=== PATIENT | female | born 1975 | race Caucasian/White ===

== ENCOUNTER 2020-10-10 10:27 | Outpatient (REF) | payer OTHER, SELFPAY ==
[2020-10-10 12:17] LABS: Influenza A PCR NEGATIVE (Negative); Influenza B PCR NEGATIVE (Negative); Resp Syncy Virus RNA Qual PCR NEGATIVE (Negative); SARS COV2 PCR INHOUSE NEGATIVE (Negative)
== END 2020-10-10 10:28 | disposition home or self-care (01) ==
LOC: HO.LAB 10:27
PROVIDERS: Visit Provider Nurse Practitioner Family
DX: R05 Cough (principal); Z20.828 Contact with and (suspected) exposure to other viral communicable diseases
CPT/HCPCS: 0241U

== ENCOUNTER 2020-10-10 10:35 | Outpatient (REF) | payer OTHER, SELFPAY ==
--- NOTE | 2020-10-10 10:40 | XR_ITS ---
EXAMINATION: XR CHEST CLINICAL INFORMATION: Cough. COMPARISON: None TECHNIQUE: 2 views of the chest were obtained. FINDINGS: No significant abnormality is noted involving the heart, lungs, mediastinum, bony thorax or soft tissues. XR/XR chest 2V IMPRESSION: No acute cardiopulmonary process.
== END 2020-10-10 10:36 | disposition home or self-care (01) ==
LOC: HO.HMGCX 10:35
PROVIDERS: PCP Internal Medicine; Visit Provider Nurse Practitioner Family
DX: R05 Cough (principal)
CPT/HCPCS: 71046

== ENCOUNTER 2021-01-23 07:32 | Outpatient (REF) | payer OTHER, SELFPAY ==
[2021-01-23 11:04] LABS: MANUAL DIFF FLAG NO
[2021-01-23 11:26] LABS: Basophils Absolute Auto 0.1 X10*3/uL (0.0-0.2); Basophils Percent Auto 1.3 % (0-2); Eosinophils Absolute Auto 0.2 X10*3/uL (0.0-0.4); Eosinophils Percent Auto 4.8 % (0-4); Hematocrit 31.4 % (37-47); Hemoglobin 9.6 g/dl (12.0-16.0); Imm Gran Abs Auto 0.01 X10*3/uL (0.00-0.03); Imm Gran Pct Auto 0.2 % (0.0-0.4); Lymphocytes Absolute Auto 1.3 X10*3/uL (1.2-4.9); Lymphocytes Percent Auto 27.5 % (20-40); Mean Corpuscular HGB Conc 30.6 g/dl (31.0-35.0); Mean Corpuscular Hemoglobin 24.4 pg (27.0-33.0); Mean Corpuscular Volume 79.7 fL (80-98); Mean Platelet Volume 11.7 fL (9.4-12.3); Monocytes Absolute Auto 0.4 X10*3/uL (0.1-1.2); Monocytes Percent Auto 8.7 % (2-11); Neutrophils Absolute Auto 2.7 X10*3/uL (2.0-8.3); Neutrophils Percent Auto 57.5 % (45-73); Platelet Count 286 X10*3/uL (160-400); Red Blood Count 3.94 X10*6/uL (4.20-5.50); Red Cell Distribution Width 16.8 % (11.0-16.0); White Blood Count 4.6 X10*3/uL (4.8-10.8)
[2021-01-23 12:19] LABS: Alanine Aminotransferase 6 U/L (0-31); Albumin Level 4.1 g/dL (3.5-5.0); Alkaline Phosphatase 46 U/L (39-117); Anion Gap 12 (12-20); Aspartate Amino Transferase 10 U/L (5-31); Bilirubin Total 0.2 mg/dL (0.0-1.0); Blood Urea Nitrogen 16 mg/dL (9-16); Calcium 8.9 mg/dL (8.4-10.2); Carbon Dioxide 25 mmol/L (22-29); Chloride 107 mmol/L (96-108); Cholesterol 181 mg/dL; Estimated Glomerular Filt Rate > 60; Glucose Fasting 94 mg/dL (60-99); HDL Cholesterol 52 mg/dL; LDL Cholesterol Calculated 115 mg/dl; Potassium 4.3 mmol/L (3.3-5.1); Sodium 140 mmol/L (135-145); Total Protein 7.2 g/dL (6.5-8.0); Triglycerides 73 mg/dL
== END 2021-01-23 07:33 | disposition home or self-care (01) ==
LOC: HO.HMGCLDS 07:32
PROVIDERS: PCP Internal Medicine; Visit Provider Internal Medicine
DX: Z00.00 Encounter for general adult medical examination without abnormal findings (principal); D22.9 Melanocytic nevi, unspecified; Z28.3 Underimmunization status
CPT/HCPCS: 36415; 80053; 80061; 85025

== ENCOUNTER 2021-02-28 10:43 | Outpatient (REF) | payer OTHER, SELFPAY ==
--- NOTE | ~2021-02-28 | US_ITS ---
EXAMINATION: US DIAGNOSTIC ULTRASOUND BREAST, LEFT CLINICAL INFORMATION: Bilateral palpable abnormalities. COMPARISON: September 05, 2014, December 04, 2017,. TECHNIQUE: Ultrasound of the breast is performed with real-time brewer scale imaging and color Doppler. FINDINGS: Targeted right breast ultrasound demonstrated multiple simple cysts largest being at the 11:00 position 6 cm from nipple measuring approximately 2.1 x 1.0 x 2.1 cm in size. At the 3:00 position approximately 1 cm from nipple there is a 6 x 5 x 6 mm simple appearing cyst. No abnormal solid mass or region of abnormal distal sound shadowing is appreciated. Targeted left breast ultrasound demonstrates multiple simple cysts. Within the retroareolar region there is a prominent duct with filling defect measuring approximately 6 x 3 mm in size which may possibly represent a papilloma or debris. No internal vascularity was identified. There was some adjacent blood flow was could possibly represent pedicle. Since patient is having nipple discharge I recommend ultrasound-guided biopsy of this structure. Results are discussed with the patient at time of visit. Report was called to referring provider's office and given to Katerin. US/US breast LT limited IMPRESSION: Bilateral simple appearing cyst. Question retroareolar papilloma left breast. Biopsy recommended. ASSESSMENT: BI-RADS 4: Suspicious RECOMMENDATION: Ultrasound-guided core biopsy left breast
--- NOTE | ~2021-02-28 | US_ITS ---
EXAMINATION: US DIAGNOSTIC ULTRASOUND BREAST, RIGHT CLINICAL INFORMATION: Probable abnormality. COMPARISON: December 04, 2017 and September 05, 2014. TECHNIQUE: Ultrasound of the breast is performed with real-time brewer scale imaging and color Doppler. FINDINGS: Targeted right breast ultrasound demonstrated multiple simple cysts largest being at the 11:00 position 6 cm from nipple measuring approximately 2.1 x 1.0 x 2.1 cm in size. At the 3:00 position approximately 1 cm from nipple there is a 6 x 5 x 6 mm simple appearing cyst. No abnormal solid mass or region of abnormal distal sound shadowing is appreciated. Targeted left breast ultrasound demonstrates multiple simple cysts. Within the retroareolar region there is a prominent duct with filling defect measuring approximately 6 x 3 mm in size which may possibly represent a papilloma or debris. No internal vascularity was identified. There was some adjacent blood flow was could possibly represent pedicle. Since patient is having nipple discharge I recommend ultrasound-guided biopsy of this structure. Results are discussed with the patient at time of visit. Report was called to referring provider's office and given to Katerin. US/US breast RT limited IMPRESSION: Bilateral simple appearing cyst. Question retroareolar papilloma left breast. Biopsy recommended. ASSESSMENT: BI-RADS 4: Suspicious RECOMMENDATION: Ultrasound-guided core biopsy left breast
--- NOTE | ~2021-02-28 | MM_ITS ---
EXAMINATION: MM DIAGNOSTIC DIGITAL BREAST TOMOSYNTHESIS, BILATERAL US BREAST TARGETED, BILATERAL CLINICAL INFORMATION: Palpable abnormality right breast felt by doctor. Palpable abnormality anterior left breast felt by patient. Patient does state that she has occasional left breast discharge. The lifetime risk of breast cancer based on the Tyrer-Cuzick Model is 11.7%. COMPARISON: Mammography: 12/04/2017 and studies dating back to 06/23/2013 TECHNIQUE: Digital breast tomosynthesis is performed in both the craniocaudal and mediolateral oblique views along with computer-aided detection (CAD). Synthesized 2-D images are generated from the tomosynthesis. FINDINGS: The breasts are extremely dense, which lowers the sensitivity of mammography (ACR BI-RADS breast composition Category d). Within the right breast, there are a few circumscribed densities present, the largest of which lies within the upper outer aspect measuring 2.1 x 1.8 cm in size. No suspicious grouping of microcalcifications identified. No region of architectural distortion is seen. Views of the left breast did not demonstrate any new abnormal mass or suspicious grouping of microcalcifications. There was question of some calcifications in the retroareolar region but which appear to be artifactual in nature. Targeted right breast ultrasound demonstrated multiple simple cysts, the largest being at the 11 o'clock position 6 cm from nipple, measuring approximately 2.1 x 1.0 x 2.1 cm in size. At the 3 o'clock position, approximately 1 cm from nipple, there is a 6 x 5 x 6 mm simple-appearing cyst. No abnormal solid mass or region of abnormal distal sound shadowing is appreciated. Targeted left breast ultrasound demonstrates multiple simple cysts. Within the retroareolar region, there is a prominent duct with filling defect measuring approximately 6 x 3 mm in size which may possibly represent papilloma or debris. No internal vascularity was identified. There was some adjacent blood flow which could possibly represent pedicle. Since patient is having nipple discharge, I recommend ultrasound-guided biopsy of this structure. Results are discussed with the patient at time of visit. Report was called to referring provider's office and given to Katerin. MM/MM tomosynthesis diagnostic BI IMPRESSION: Bilateral simple-appearing cysts. Question retroareolar papilloma left breast. Biopsy recommended. ASSESSMENT: BI-RADS 4: Suspicious RECOMMENDATION: Ultrasound-guided core biopsy left breast.
== END 2021-02-28 10:44 | disposition home or self-care (01) ==
LOC: HO.MAMMO 10:43
PROVIDERS: Visit Provider Hospitalist
DX: N63.12 Unspecified lump in the right breast, upper inner quadrant (principal); N63.25 Unspecified lump in the left breast, overlapping quadrants
CPT/HCPCS: 76642; 77062; 77066

== ENCOUNTER 2021-03-21 09:18 | Outpatient (REF) | payer OTHER, SELFPAY ==
--- NOTE | ~2021-03-21 | MM_ITS ---
EXAMINATION: DIGITAL POST-PROCEDURE MAMMOGRAPHY: Breast density: The tissue is extremely dense, which lowers the sensitivity of mammography. BI-RADS version 5, category D. There are no new mammographic findings demonstrated. The postprocedure 2-view direct digital mammogram reveals satisfactory positioning of the biopsy clip. The patient tolerated the procedure well and, after assuring adequate hemostasis, was discharged in good condition after reviewing postbiopsy breast care instructions. Final pathology results are pending. MM/MM diagnostic mammo unilat LT IMPRESSION: 1. No immediate complication from ultrasound-guided percutaneous biopsy left breast. 2. Ultrasound was used to localize and guide marker clip placement. 3. The 2-view direct digital postprocedure mammogram reveals satisfactory positioning of the biopsy clip. 4. Final pathology results are pending. A separate report with final recommendations will be issued once these results are made available.
--- NOTE | ~2021-03-21 | US_ITS ---
PROCEDURE: US GUIDED BREAST BIOPSY, LEFT CLINICAL INFORMATION: Intraductal density COMPARISON: February 28, 2021 PROCEDURAL DETAILS: The details of the procedure, as well as the risks, benefits, and alternatives to the procedure were explained to the patient in detail and all of her questions were answered, after which written informed consent was obtained. Site and side were confirmed. Prior to the procedure, sonography revealed distended retroareolar duct with filling defect without vascularity.. A time-out was performed, the lesion intended for biopsy was targeted, and the skin of the left breast was then prepped and draped in the usual sterile fashion. Using sonographic guidance, sterile technique, and 1% lidocaine without epinephrine for local anesthesia, multiple automated core biopsies were obtained through the targeted area with a 14G spring loaded Achieve core biopsy device. There was real-time confirmation of appropriate needle passage. Sampling was documented. At the completion of tissue sampling, a single coil-shaped metallic clip was deposited at the biopsy site. There was no evidence of immediate complication. SPECIMEN: An appropriate sample was obtained. DIGITAL POST-PROCEDURE MAMMOGRAPHY: Breast density: The tissue is extremely dense, which lowers the sensitivity of mammography. BI-RADS version 5, category D. There are no new mammographic findings demonstrated. The postprocedure 2-view direct digital mammogram reveals satisfactory positioning of the biopsy clip. The patient tolerated the procedure well and, after assuring adequate hemostasis, was discharged in good condition after reviewing postbiopsy breast care instructions. Final pathology results are pending. US/US breast ndl core biopsy LT IMPRESSION: 1. No immediate complication from ultrasound-guided percutaneous biopsy left breast. 2. Ultrasound was used to localize and guide marker clip placement. 3. The 2-view direct digital postprocedure mammogram reveals satisfactory positioning of the biopsy clip. 4. Final pathology results are pending. A separate report with final recommendations will be issued once these results are made available.
== END 2021-03-21 09:19 | disposition home or self-care (01) ==
LOC: HO.MAMMO 09:18
PROVIDERS: Visit Provider Surgery
DX: R92.2 Inconclusive mammogram (principal)
CPT/HCPCS: 19083; 77065; 88305; 99202

== ENCOUNTER → 2021-03-27 13:09 | Outpatient (BNVA) | payer OTHER, SELFPAY | PROVIDERS: PCP Internal Medicine; Referring Provider Internal Medicine; Visit Provider Surgery | DX: D24.2 Benign neoplasm of left breast (principal) | CPT/HCPCS: 99212 ==

== ENCOUNTER 2021-04-16 06:57 | Day surgery (SDC) | payer OTHER, SELFPAY ==
[2021-04-08 15:01] VITALS: BMI 22.2
--- NOTE | 2021-04-12 09:30 | P.CONAN_ITS ---
Documented by User: Gladis Preston 04/12/21 09:35 HPI - Anesthesia Eval Consult details Narrative: 45yo F for Left Breast Biopsy Needle Localization, Lumpectomy PMFSH Active Problems Active Problems: All Active Problems (Updated 04/08/21 @ 14:59 by Rosie Puckett) Cough (Acute) Pneumonia (Acute) Annual physical exam (Acute) Change in mole (Acute) Immunizations incomplete (Acute) Breast screening (Acute) Iron deficiency anemia (Acute) Masses of both breasts (Acute) Intraductal papilloma (Acute) Abnormal mammogram of left breast (Acute) Left breast mass (Acute) Past Medical History Medical History (Updated 04/08/21 @ 14:59 by Rosie Puckett) Abnormal mammogram of left breast Intraductal papilloma Iron deficiency anemia Left breast mass Family History Family History Maternal Grandmother Breast cancer Surgical History Surgical History (Updated 04/08/21 @ 14:49 by Rosie Puckett) H/O section History of appendectomy History of tonsillectomy Social History Social History Are you a primary career development consultant to a significant other at home: No Do you presently have visiting nurse or other home services: No Alcohol intake: current Alcohol intake frequency: a few times a week Patient Tobacco Use Status: Never used Tobacco Use of substances other than those prescribed or required for medical reasons: No Have you been hit, kicked, punched, or otherwise hurt by someone within the past year? If so, by whom?: No Are you DNR?: No Advance Directives: No Advance Directives Information Provided: No Advance Directives on File: No Recently lost weight without trying: No Eating poorly because of decreased appetite: No Nutrition Risks: No Nutritional Risk Patient : No Meds Allergies Allergy/AdvReac Type Severity Reaction Status Date / Time Environmental Allergy Unknown unknown Uncoded 02/18/21 09:41 Home Medications Medication Instructions Recorded Confirmed Last Taken Type triamcinolone acetonide 0.1 % PO 02/18/21 02/18/21 Unknown History dental paste Exam Exam Date and Time: April 12, 2021 0930 Height,Weight and Vital Signs: Height 5 ft 6 in Weight 62.596 kg Pertinent Lab Results Pertinent Lab Results: Laboratory Tests 01/23/21 01/23/21 07:37 07:37 WBC 4.6 L Hgb 9.6 L Hct 31.4 L Plt Count 286 Sodium 140 Potassium 4.3 Chloride 107 Carbon Dioxide 25 BUN 16 Creatinine 0.74 Assessment and Plan Assessment Anesthesia Assessment: Chart Reviewed Documented by User: Issa Lutz MD 04/16/21 08:53 PMFSH Past Medical History Medical History (Updated 04/08/21 @ 14:59 by Rosie Puckett) Abnormal mammogram of left breast Intraductal papilloma Iron deficiency anemia Left breast mass Family History Family History Maternal Grandmother Breast cancer Family history of problems with anesthesia: No Surgical History Surgical History (Updated 04/08/21 @ 14:49 by Rosie Puckett) H/O section History of appendectomy History of tonsillectomy History of Problems with Anesthesia: No Social History Social History Are you a primary career development consultant to a significant other at home: No Do you presently have visiting nurse or other home services: No Alcohol intake: current Alcohol intake frequency: a few times a week Patient Tobacco Use Status: Never used Tobacco Use of substances other than those prescribed or required for medical reasons: No Have you been hit, kicked, punched, or otherwise hurt by someone within the past year? If so, by whom?: No Are you DNR?: No Advance Directives: No Advance Directives Information Provided: No Advance Directives on File: No Recently lost weight without trying: No Eating poorly because of decreased appetite: No Nutrition Risks: No Nutritional Risk Patient : No Meds Allergies Allergy/AdvReac Type Severity Reaction Status Date / Time Environmental Allergy Unknown unknown Uncoded 02/18/21 09:41 Home Medications Medication Instructions Recorded Confirmed Last Taken Type triamcinolone acetonide 0.1 % PO 02/18/21 02/18/21 Unknown History dental paste Exam Airway Mallampati Class: I TM Dist: >3cm Neck ROM: Full Loose/Missing/Broken Teeth: No Assessment and Plan Assessment Anesthesia Assessment: Anesthesia Plan Discussed and Chart Reviewed Final Anesthetic Review NPO: Yes ASA Class: II Final Preanesthetic Review: No Changes in Pt Med Stat, Meds/Allgs Chart Reviewed, Consent Obtained/Reviewed and Anes Risks/Benef Reviewed Patient Risk: Low Procedure Risk: Low Anesthetic Plan Anesthetic Plan: GA and Agree w/ Assess. and Plan Disposition: Standard PACU
[2021-04-16] VITALS (9 sets, daily range): BP systolic 102–133; BP diastolic 63–79; PULSE 72–90; RESP 16; TEMP 36.3–36.6; O2SAT 97–100
--- NOTE | ~2021-04-16 | MM_ITS ---
EXAMINATION: MM MAMMOGRAM GUIDED NEEDLE LOCALIZATION BREAST, LEFT MM NEEDLE LOCALIZATION SPECIMEN FROM THE LEFT BREAST CLINICAL INFORMATION: Left breast intraductal papilloma with small fragment of atypical epithelium. COMPARISON: Mammography 02/28/2021, 6 07/31/2021, targeted ultrasound 02/28/2021, ultrasound-guided core biopsy left breast 03/21/2021. TECHNIQUE NEEDLE LOC: Proper informed consent is obtained from the patient after discussion of the procedure, potential risks and complications, and alternatives including declining the procedure today. Patient was given an opportunity for questions. The patient appeared to understand. The patient consented to the procedure and signed the consent form. GUIDANCE: Digital mammography. APPROACH: Lateral Medial. TARGET: Retroareolar biopsy clip marker left breast. ANESTHESIA: lidocaine 1%: 5 mL. LOCALIZATION MARKER: [place] [employer]. 5 cm length. The skin is prepped and local anesthesia administered. The needle is positioned and position assessed with mammography. The wire is hooked into position. [place] needle protector placed. The patient tolerated the procedure well and had no immediate complication. Procedure results discussed with Dr. Bauman prior to surgery. TECHNIQUE SPECIMEN RADIOGRAPH: Imaging of the excised specimen is performed using digital mammography in 1 view. FINDINGS SPECIMEN RADIOGRAPH: The specimen shows the needle and hookwire are delivered intact. The biopsy clip marker is within the specimen, or adjacent to the localization wire. There are some punctate round calcifications 2 cm from the clip. Results were called to Dr. Francisco Bauman in the operating room at the time of imaging. MM/MM needle loc LT IMPRESSION: 1. Status post left breast needle localization with wire hooked into position. 2. Post operative specimen radiograph obtained.
[2021-04-16 07:21] LABS: UPreg QC Valid YES; Urine Pregnancy NEGATIVE (NEGATIVE)
--- NOTE | 2021-04-16 08:13 | PC.NURSE ---
off unit via stretcher for needle localization
--- NOTE | 2021-04-16 08:28 | MHC.SHP ---
Pre-Procedural Eval Section A Date of Service: 04/16/21 Section B Chief Complaint: Intraductal papilloma Allergies: Allergies Allergy/AdvReac Type Severity Reaction Status Date / Time Environmental Allergy Unknown unknown Uncoded 02/18/21 09:41 Plan I have reviewed the history and physical and performed a pertinent physical examination on my patient. No changes have occurred unless specified.
--- NOTE | 2021-04-16 08:31 | PM.OP ---
Brief Operative Note Date of Service: 04/16/21 Pre-op diagnosis: intraductal papilloma left breast Post-op diagnosis: same Procedure: lumpectomy left breast with needle localization Surgeon: Francisco Bauman MD Anesthesia: GLMA Was an Tacking Stitch Remover used for this Procedure?: No Estimated blood loss (mL): 30 Pathology: other ( lumpectomy specimen) Condition: stable Disposition: PACU
--- NOTE | 2021-04-16 08:32 | W.PM.OPN ---
Operative Note Operative Note Date of Service: 04/16/21 Narrative: preop diagnosis: Intraductal papilloma left breast Postop diagnosis same Procedure: Lumpectomy, left breast with needle localization Surgeon: Francisco Bauman MD Computer Operations Analyst: none The patient is a 45-year-old female who had undergone ultrasound biopsy for of the left breast because of a abnormal mammogram. The biopsy report showed an intraductal papilloma. It was recommended to her to undergo lumpectomy to rule out sssociated higher grade lesions. She understood the technique of the procedure. She was aware of the risks, benefits, and alternatives. She underwent needle localization the radiology suite. I discussed and reviewed the needle localization films with the radiologist. She was brought to the operating room placed supine the table under general anesthesia via laryngeal mask airway. The localizing needle was seen to enter from lateral to medially. A surgical time-out was done. The left breast was prepped and draped in the usual sterile fashion. Patient received cefazolin 2 g IV preoperatively. I marked my planned line of incision and infiltrated this with lidocaine 1%. I made the incision using blade 15. tangential to the needle and this was carried down through the full-thickness of the skin and part of the subcutaneous layer with electrocautery. I then proceeded to retract the skin surrounding the incision and used dissection with a curved Boo scissors to divide through the breast tissue surrounding the needle. We continued to dissect circumferentially around the localizing needle, periodically checking to make sure that we were oriented properly and that we were including adequate margins of breast tissue around the needle itself. We had to cauterize periodically in view of some bleeding from the divided breast tissue. The continue to do it sec around the needle to the breast tissue and do separate this lumpectomy specimen posteriorly. Eventually was I able to deliver this lumpectomy specimen with a needle and we sent this for immediate re-ray and gross exam. I then proceeded to examine the biopsy cavity. I had to cauterize some oozing areas. I copies irrigated. I applied a gauze within the cavity and observed for a few minutes. I removed the gauze examined for hemostasis. Once hemostasis was ensured a proceeded to infiltrate the area around the biopsy site with Marcaine 0.5% for postop analgesia. Then reapposed the breast tissue with Dexon 3-0 interrupted sutures. Skin closure was achieved with Dexon 4-0 subcuticular running stitch. Steri-Strips and dressings were applied At the end of the procedure, I received a call from the radiologist stating that the clip was within good position of the lumpectomy specimen and that the localizing needle was in place and intact as well. The procedures are completed The patient tolerated procedure well. There were no complication noted. Initial fine counts of sponges and instruments were correct. Estimated blood loss about 30 cc The patient was then extubated without difficulty and transferred to the recovery room with stable vital signs.
[2021-04-16] MEDS: Lactated Ringers 1,000 ML 100 ML IVCONT (08:49)
[2021-04-16] MEDS: fentaNYL citrate/PF 100 MCG/2 ML VIAL 50 MCG IVPUSH (10:20)
[2021-04-16] MEDS: ondansetron HCL 4 MG/2 ML VIAL IVPUSH (10:25)
== END 2021-04-16 12:14 | disposition home or self-care (01) ==
PROVIDERS: Nurse Practitioner; PCP Internal Medicine; Visit Provider Surgery
PROC: (CPT 19301; principal; 2021-04-16 09:00)
PROC: (CPT 19301; 2021-04-16 09:00)
DX: D24.2 Benign neoplasm of left breast (principal); D50.9 Iron deficiency anemia, unspecified; Z79.899 Other long term (current) drug therapy
CPT/HCPCS: 19301; 19281; 81025; 88307; 88329; A4648; J0690; J1100; J1885; J2405; J3010

== ENCOUNTER → 2021-04-24 10:26 | Outpatient (BNVA) | payer OTHER, SELFPAY | PROVIDERS: PCP Internal Medicine; Referring Provider Internal Medicine; Visit Provider Surgery | DX: D36.9 Benign neoplasm, unspecified site (principal) | CPT/HCPCS: 99212 ==

== ENCOUNTER 2022-04-01 13:27 | Outpatient (REF) | payer OTHER, SELFPAY ==
--- NOTE | ~2022-04-01 | MM_ITS ---
EXAMINATION: MM DIAGNOSTIC DIGITAL BREAST TOMOSYNTHESIS, BILATERAL US DIAGNOSTIC ULTRASOUND BREAST, RIGHT CLINICAL INFORMATION: Due for yearly. New palpable area noted by patient anterior 11:30 o'clock right breast for approximately 4 days. History intraductal papilloma contralateral left breast with focal atypia. Lesion completely excised 04/16/2021. The lifetime risk of breast cancer based on the Tyrer-Cuzick Model is 12%. COMPARISON: Mammography: 04/16/2021, 03/21/2021, 02/28/2021, 12/04/2017; ultrasound right breast 02/28/2021. TECHNIQUE: Digital breast tomosynthesis is performed in both the craniocaudal and mediolateral oblique views along with computer-aided detection (CAD). Synthesized 2D images are generated from the tomosynthesis. Additional exaggerated left CC view is provided. Ultrasound right breast is targeted to the area of clinical concern upper breast 10:00 through 2:00 position using grayscale imaging and color Doppler without and with harmonics. Patient is able to point to area of concern at time of imaging. FINDINGS: Mammography: The breasts are heterogeneously dense, which may obscure small masses (ACR BI-RADS breast composition Category c). There are interval postsurgical changes left breast with mild reduced breast size and scarring. Neither breast shows abnormal calcifications. The bilateral axilla are unremarkable. There are increased fibrocystic changes anterior upper inner right breast in the area of palpable concern. No architectural abnormality. Ultrasound: Ultrasound demonstrates scattered simple cysts right breast, anechoic with circumscribed margins and increased through-transmission of sound. No associated solid component or septation or color flow. Dominant cyst is retroareolar 11:00 position increased in size, currently measuring 2.8 x 1.1 x 2.5 cm compared with prior measurements 2.1 x 1.0 x 2.1 cm. The next largest cyst is near the palpable concern anterior 12:00 position and measures 1.5 x 1.2 cm, not previously described on ultrasound. There is no solid mass or architectural abnormality or focal duct ectasia. No skin thickening or edema tracking in soft tissue planes. Management: Results are discussed with the patient at time of visit. The palpable concern corresponds to a simple cysts. There are amenable to ultrasound-guided fine-needle aspiration if symptomatic or increasing. MM/MM tomosynthesis diagnostic BI IMPRESSION: -No mammographic evidence of malignancy. -Post surgical changes left breast consistent with prior excision. -Fibrocystic changes right breast corresponding to area of palpable concern, largest cyst 2.8 cm. ASSESSMENT: BI-RADS 2: Benign RECOMMENDATION: 1. Patient should be managed based on the clinical impression. If the benign simple cysts right breast are symptomatic or continue to increase in size, they would be amenable to therapeutic ultrasound-guided aspiration. 2. Otherwise, routine annual screening mammography. This patient's information was entered into a reminder system with a target due date for their next mammogram.
== END 2022-04-01 13:28 | disposition home or self-care (01) ==
LOC: HO.MAMMO 13:27
PROVIDERS: PCP Internal Medicine; Visit Provider Internal Medicine
DX: N63.15 Unspecified lump in the right breast, overlapping quadrants (principal)
CPT/HCPCS: 76642; 77062; 77066

== ENCOUNTER 2024-01-21 08:02 | Outpatient (AMB) | payer OTHER, SELFPAY ==
[2024-01-21 08:14] VITALS: BP 110/62; PULSE 73; TEMP 36.6; O2SAT 97; BMI 21.0
--- NOTE | 2024-01-21 08:14 | AM.OFFWIN_ITS ---
Intake Vital Signs 01/21/24 08:14 Height 5 ft 6 in Weight 130 lb BMI 21.0 BP 110/62 Blood Pressure Location Lt brachial Position Sitting Pulse 73 Pulse Source Pulse Oximeter Temp 97.9 F Temp Source Oral Pulse Oximetry (%) 97 Oxygen Delivery Method Room Air Intake Visit Reasons: EP Lump on RT breast secreting Intake Note: pt is here for lump on right breast, also secreting fluid since thursday. patient states she has fam hx of breast cancer and left lumpectomy that was pre cancer 2 yesrs ago Patient Tobacco Use Status: Never used Tobacco Allergies Environmental Allergy (Unknown, Uncoded 01/21/24 08:15) unknown Do you need a note to return to daycare/school/sports/work: Yes HPI HPI Comments History of Present Illness Details 48 y/o female patient who presents to [facility] in clinic with c/o right breast lump since Thursday. H/o cysts on the right breast. Had Mammo 2021 with Bi-Rads 2. H/o PreCA left breast with Lumpectomy. [facility] Medical History Iron deficiency anemia Surgical History H/O section History of appendectomy History of lumpectomy of left breast History of tonsillectomy Family History Maternal Grandmother Breast cancer Social History (Updated 05/30/22 @ 09:37 by Radha Zee) Household Members: Spouse Housing: House Are you a primary home care and home health aides teacher to a significant other at home: No Do you presently have visiting nurse or other home services: No Alcohol intake: current Alcohol intake frequency: a few times a week Patient Tobacco Use Status: Never used Tobacco e-Cigarette/Vaping Use: Never Used service: No Current occupational status: employed Cognitive needs: No Hearing needs: No Vision needs: Yes (contacts) Female Reproductive History Menstrual Age of Menarche: 15 Review of Systems Const All systems reviewed & are unremarkable except as noted in HPI and below Physical Exam Vital Signs: Last Vital Signs Temp 97.9 F 01/21/24 08:14 Pulse 73 01/21/24 08:14 BP 110/62 01/21/24 08:14 Pulse Ox 97 01/21/24 08:14 Oxygen Delivery Method Room Air 01/21/24 08:14 BMI result Body Mass Index 21.0 Const General: comfortable and no acute distress Orientation/consciousness: patient oriented x3 Chest Breast/axilla palpation: no axillary lymphadenopathy and abnormal palpation of the breast (right breast, mass between 5 & 6 O'clock region. Firm, round and ~ 1.5 inch) Neuro General: patient oriented x3, gait normal and moves all extremities Psych Speech and movement: Normal speech and movement present Assessment & Plan Assessment & Plan (1) Breast lump on right side at 6 o'clock position: Code(s): N63.15 - Unspecified lump in the right breast, overlapping quadrants Plan: - Right breast, mass between 5 & 6 O'clock region. Firm, round and ~ 1.5 inch - Dx Mammo, US right breast ordered. - F/U with PCP. Orders: Orders US breast RT limited Today N63.15 - Unspecified lump in the right breast, overlapping quadrants MM diagnostic mammo unilat RT Today N63.15 - Unspecified lump in the right breast, overlapping quadrants Coding Level of Care Code Est Pt Level 3 (30574) Diagnoses Breast lump on right side at 6 o'clock position N63.15 Time Spent (min) 15
== END 2024-01-21 08:26 | disposition home or self-care (01) ==
PROVIDERS: PCP Internal Medicine; Visit Provider Nurse Practitioner Family
DX: N63.15 Unspecified lump in the right breast, overlapping quadrants (principal)
CPT/HCPCS: 99213

== ENCOUNTER 2024-01-28 08:36 | Outpatient (AMB) | payer OTHER, SELFPAY ==
--- NOTE | 2024-01-28 09:33 | MHC.PC.OV ---
Intake Visit Reasons: mammo order needed Allergies Environmental Allergy (Unknown, Uncoded 01/28/24 09:33) unknown Tobacco use date assessed: 01/28/24 Dental Screening Dental Screen Date: 01/28/24 Did you have a dental visit in the last 12 months?: Yes Did you have a dental problem in the last 6 months where you did not have access to dental care?: No Was dental information given to patient?: Patient has dentist HPI mammo order needed HPI Details Patient is 48-year-old female who found a lump in her right breast She was evaluated in walk-in clinic, I see that ultrasound and mammogram diagnostic order was placed Patient says that she has not received any call from mammogram Center, and it has been a week Number for why did to patient, she will call and book her own appointment She also have a slight leak from the nipple, patient have a history of cyst breast in the past Physical exam done on at walk-in clinic was as following Breast/axilla palpation: no axillary lymphadenopathy and abnormal palpation of the breast (right breast, mass between 5 & 6 O'clock region. Firm, round and ~ 1.5 inch) She has no symptoms of fever chills or breast pain PFSH Medical History Iron deficiency anemia Intraductal papilloma Abnormal mammogram of left breast Left breast mass Surgical History History of lumpectomy of left breast History of tonsillectomy H/O section History of appendectomy Family History Maternal Grandmother Breast cancer Social History Household Members: Spouse Housing: House Are you a primary healthcare specialist to a significant other at home: No Do you presently have visiting nurse or other home services: No Alcohol intake: current Alcohol intake frequency: a few times a week Patient Tobacco Use Status: Never used Tobacco e-Cigarette/Vaping Use: Never Used service: No Current occupational status: employed Cognitive needs: No Hearing needs: No Vision needs: Yes (contacts) Female Reproductive History Menstrual Age of Menarche: 15 Review of Systems Const All systems reviewed & are unremarkable except as noted in HPI and below Physical exam (Primary Care) Tobacco/Smoking Status: Tobacco use Status Tobacco use date assessed 01/28/24 01/28/24 09:35 Patient Tobacco Use Status Never used Tobacco 01/28/24 09:35 e-Cigarette/Vaping Use Never Used 01/28/24 09:35 Telehealth Telehealth Location of provider rendering services: practice address Location of patient: address on file Patient Identification confirmed using: Name, : Yes Telehealth method: voice only Patient verbally consented to treatment: Yes Patient verbally consented to billing insurance company: Yes Patient informed of any privacy concerns related to visit: Yes Minutes spent on Phone/Video with Pt.: 11 Assessment and Plan Assessment & Plan (1) Breast lump on left side at 5 o'clock position: Code(s): N63.23 - Unspecified lump in the left breast, lower outer quadrant Plan Patient is 48-year-old female who found a lump in her right breast She was evaluated in walk-in clinic, I see that ultrasound and mammogram diagnostic order was placed Patient says that she has not received any call from mammogram Center, and it has been a week Number for why did to patient, she will call and book her own appointment She also have a slight leak from the nipple, patient have a history of cyst breast in the past Physical exam done on at walk-in clinic was as following Breast/axilla palpation: no axillary lymphadenopathy and abnormal palpation of the breast (right breast, mass between 5 & 6 O'clock region. Firm, round and ~ 1.5 inch) She has no symptoms of fever chills or breast pain Coding Level of Care Code Tele Est Pt Level 2 (72406) Diagnoses Breast lump on left side at 5 o'clock position N63.23
== END 2024-01-28 13:01 | disposition home or self-care (01) ==
LOC: HO.HMGC 08:36
PROVIDERS: PCP Internal Medicine; Visit Provider Internal Medicine
DX: N63.23 Unspecified lump in the left breast, lower outer quadrant (principal)
CPT/HCPCS: 99212

== ENCOUNTER 2024-02-10 08:52 | Outpatient (REF) | payer OTHER, SELFPAY ==
--- NOTE | ~2024-02-10 | MM_ITS ---
EXAMINATION: MM DIAGNOSTIC DIGITAL BREAST TOMOSYNTHESIS, BILATERAL US BREAST LIMITED, RIGHT MAMMOGRAPHY: CLINICAL INFORMATION: 48-year-old female, history of left breast papilloma status post excision, complaining of palpable abnormality right breast 5:00 to 6:00 region. History of cysts. Patient due for bilateral screening as well. COMPARISON: Mammography: 04/01/2022, 04/16/2021, 03/21/2021, 02/28/2021, 12/04/2017; ultrasound right breast 04/01/2022, 02/28/2021. TECHNIQUE: Digital breast tomosynthesis is performed in both the craniocaudal and mediolateral oblique views along with computer-aided detection (CAD). Synthesized 2D images are generated from the tomosynthesis. In addition, full-field 3-D digital right mediolateral view was also included. FINDINGS: The breasts are extremely dense, which lowers the sensitivity of mammography (ACR BI-RADS breast composition Category d). In the 6:00 axis of the right breast, there is a circumscribed 1.8 cm isodense mass, likely representing the palpable abnormality. In addition there is a circumscribed isodense 1.1 cm mass in the 9:00 axis of the right breast, posterior one third. No additional masses, suspicious calcifications, or areas of architectural distortion in either breast. There are postlumpectomy changes in the upper slightly outer left breast with associated scarring. No additional abnormalities in the left breast. No evidence of axillary abnormalities. ULTRASOUND: CLINICAL INFORMATION: As above. COMPARISON: 04/01/2022, 02/28/2021. TECHNIQUE: Targeted sonographic evaluation was performed using a high frequency linear transducer. Right breast was scanned to involve the 5-10 o'clock axis to include the palpable area of concern in the 9:00 axis mass. Selected archived documentation. FINDINGS: RIGHT BREAST: -In the 6:00 axis right breast, there is a 1.8 x 1.7 x 1.1 cm oval bilobed simple cyst with good through transmission and no internal echoes, correlating well with the area of palpable concern. The 9:00 axis of the right breast, there is a 9 mm simple cyst, located 7 cm from the nipple, correlating with the finding on mammography. No suspicious masses, abnormal regions of shadowing, or other abnormalities noted. MM/MM tomosynthesis diagnostic BI IMPRESSION: -No findings suspicious for malignancy in either breast. -Palpable foci right breast correlates with a simple cyst at 6:00. Additional simple cyst seen at 9:00. These findings are benign. -Stable post lumpectomy changes left breast. Recommend the patient return to routine annual screening in one year. OVERALL ASSESSMENT: Mammography: BI-RADS 2 - Benign Findings Ultrasound: BI-RADS 2 - Benign Findings RECOMMENDATION: 1 year F/U Results were provided to the patient at time of visit by the technologist. This patient's information was entered into a reminder system with a target due date for their next mammogram.
== END 2024-02-10 08:53 | disposition home or self-care (01) ==
LOC: HO.MAMMO 08:52
PROVIDERS: PCP Internal Medicine; Visit Provider Internal Medicine
DX: N63.15 Unspecified lump in the right breast, overlapping quadrants (principal)
CPT/HCPCS: 76642; 77062; 77066

== ENCOUNTER → 2024-02-10 09:30 | Outpatient (BNV) | payer OTHER, SELFPAY | PROVIDERS: PCP Internal Medicine; Visit Provider Radiology Diagnostic Radiology | DX: N60.01 Solitary cyst of right breast (principal) | CPT/HCPCS: 76642; 77062; 77066 ==

== ENCOUNTER 2024-02-12 07:52 | Outpatient (AMB) | payer OTHER, SELFPAY ==
--- NOTE | 2024-02-12 07:58 | A.OFFPC_ITS ---
Vital Signs 02/12/24 08:00 Height 5 ft 6 in Weight 136 lb BMI 21.9 BP 112/64 Blood Pressure Location Rt brachial Position Sitting Pulse 88 Pulse Source Pulse Oximeter Pulse Oximetry (%) 98 Oxygen Delivery Method Room Air Intake Visit Reasons: Annual PE Allergies Environmental Allergy (Unknown, Uncoded 02/12/24 08:00) unknown Medication List - Last Reviewed 02/12/24 by MEENA Morales No Known Home Meds Tobacco use date assessed: 01/28/24 Dental Screening Dental Screen Date: 01/28/24 HPI Annual PE HPI Details Patient is a 48-year-old female came in today for physical exam Patient have a history of iron-deficiency anemia However she has not had her menstrual cycle in 4 months, patient is going through menopause She is due for lab order placed Complaining of feeling tired, I have added B12 as well Meanwhile she is to continue with the iron supplement, refill sent Patient is up-to-date with mammogram that was just done She is established with OBGYN at [facility] Pap smear and breast exams are through them Due for colonoscopy She has allergies, and is taking no allergy medication, on physical exam today she is wheezing right lower posterior lung base I have sent cetirizine prescription and ProAir as well Further management after the reports [facility] Medical History Iron deficiency anemia Intraductal papilloma Abnormal mammogram of left breast Left breast mass Surgical History History of lumpectomy of left breast History of tonsillectomy H/O section History of appendectomy Family History Maternal Grandmother Breast cancer Social History Household Members: Spouse Housing: House Are you a primary careers counsellor to a significant other at home: No Do you presently have visiting nurse or other home services: No Alcohol intake: current Alcohol intake frequency: a few times a week Patient Tobacco Use Status: Never used Tobacco e-Cigarette/Vaping Use: Never Used service: No Current occupational status: employed Cognitive needs: No Hearing needs: No Vision needs: Yes (contacts) Female Reproductive History Menstrual Age of Menarche: 15 Questionnaire PHQ-9 Over the last 2 weeks, how often have you been bothered by any of the following problems? 1. Little interest or pleasure in doing things: more than half the days 2. Feeling down, depressed, or hopeless: not at all 3. Trouble falling or staying asleep, or sleeping too much: nearly every day 4. Feeling tired or having little energy: nearly every day 5. Poor appetite or overeating: not at all 6. Feeling bad about yourself - or that you are a failure or have let yourself or your family down: not at all 7. Trouble concentrating on things, such as reading the newspaper or watching television: not at all 8. Moving or speaking so slowly that other people could have noticed. Or the opposite - being so fidgety or restless that you have been moving around a lot more than usual: not at all 9. Thoughts that you would be better off or of hurting yourself in some way: not at all Total score: 8 Depression Screening Interpretation: Negative Depression Screening Done: Yes 35905 - PHQ-9 Billing: Yes Source: Developed by Drs. Anant Romero, Deja Shaw, Gregory Romano and colleagues, with an educational guille from [employer]. Thrive Questionnaire Date Thrive assessed: 02/12/24 I am a: Patient What is your living situation today?: I have a steady place to live Within the past 12 months, did the food you bought not last and you didn't have the money to get more?: Never true Within the past 12 months, did you worry whether your food would run out before you got money to buy more?: Never true Do you have trouble paying for medicines?: No Do you have trouble getting transportation to medical appointments?: No Do you have trouble paying your heating and electricity bill?: No Do you have trouble taking care of your child, family member or friend?: No Do you have trouble with day-to-day activities such as bathing, preparing meals, shopping, managing finances, etc.?: No Are you currently unemployed and looking for a job?: No Are you interested in more education?: No Please select the resources that you would like help with: None Currently or been in a relationship where the following occur: no concerns reported THRIVE Score: 0 KRISTINE-7 AMB Questionnaire KRISTINE-7 Date KRISTINE - 7 assessed: 02/12/24 Feeling nervous, anxious, or on edge: 0 = Not at all Not being able to stop or control worryin = Not at all Worrying too much about different things: 1 = Several days Trouble relaxin = Not at all Being so restless that it is hard to sit still: 0 = Not at all Becoming easily annoyed or irritable: 0 = Not at all Feeling afraid as if something awful might happen: 0 = Not at all Total KRISTINE-7 score (0-4 normal; 5-9 mild; 10-14 moderate; 15-21 severe): 1 Source: Developed by Drs. Anant Romero, Deja Shaw, Gregory Romano and colleagues, with an educational guille from [employer]. KRISTINE-7 Assessment Billing KRISTINE-7 Assessment Tool: KRISTINE-7 Assessment 69199 Review of Systems Const Denies chills, Denies fever(s) and Denies headache(s) Eyes Denies blurry vision ENT Denies headache(s), Denies nasal discharge, Denies nasal obstruction, Denies odynophagia and Denies sinus pain Card Denies chest pain at rest and Denies chest pain with activity Resp Denies cough and Denies hemoptysis GI Denies diarrhea, Denies odynophagia, Denies vomiting and Denies hematemesis Reports as per HPI Musc Denies abnormal gait Skin/Breast Reports as per HPI Neuro Denies Neuro-related abnormal movements, Denies Abnormal speech present, Denies abnormal gait, Denies headache(s) and Denies Sensory deficit (Neuro) Psych Denies mood swings and Denies paranoia Endo Reports as per HPI Ap/Lymph Reports as per HPI Aller/Immun Reports as per HPI Physical exam (Primary Care) Vital Signs: Last Vital Signs Pulse 88 02/12/24 08:00 BP 112/64 02/12/24 08:00 Pulse Ox 98 02/12/24 08:00 Oxygen Delivery Method Room Air 02/12/24 08:00 BMI result Body Mass Index 21.9 Tobacco/Smoking Status: Tobacco use Status Tobacco use date assessed 01/28/24 02/12/24 07:59 Patient Tobacco Use Status Never used Tobacco 02/12/24 07:59 e-Cigarette/Vaping Use Never Used 02/12/24 07:59 PHQ-9: PHQ-9 Score PHQ-9: Total score 8 02/12/24 08:23 Depression Screening Interpretation: Negative Thrive Assessment: Date of Thrive Assessment Date Thrive assessed 02/12/24 02/12/24 08:23 Currently or been in a relationship where the following occur: no concerns reported Const General: cooperative, comfortable and no acute distress Orientation/consciousness: patient oriented x3 HENMT Head: Yes normocephalic and Yes atraumatic Eyes General: appearance normal, both eyes and all related structures Pupils: Equal, round and reactive pupils present EOM: EOMs intact bilaterally Neck Neck: Yes supple and No lymphadenopathy Thyroid: Thyroid normal Lymphatic: no lymphadenopathy noted Resp Other: Mild wheezing right lower base posteriorly with deep breath Effort & Inspection: normal respiratory effort and able to speak in complete sentences Cardio Heart sounds: S1 normal heart sound present and S2 normal heart sound present GI Palpation (GI): Soft to palpation and nontender Auscultation: normal bowel sounds General: Yes no CVA tenderness Back/Spine/Pelvis Back: no CVA tenderness Skin General skin exam: elasticity normal and turgor normal Neuro General: patient oriented x3 and gait normal Cranial nerves: Yes Equal, round and reactive pupils present Speech: No Abnormal speech present Sensory Exam: No Sensory deficit (Neuro) Coordination: tandem gait normal and Romberg test negative Extrem General: Yes normal exam except as noted and No edema Assessment and Plan Assessment & Plan (1) Encounter for general adult medical examination with abnormal findings: Code(s): Z00.01 - Encounter for general adult medical examination with abnormal findings (2) Iron deficiency anemia: Code(s): D50.9 - Iron deficiency anemia, unspecified Qualifiers: Iron deficiency anemia type: chronic blood loss Qualified Code(s): D50.0 - Iron deficiency anemia secondary to blood loss (chronic) (3) Tired: Code(s): R53.83 - Other fatigue (4) Environmental allergies: Code(s): Z91.09 - Other allergy status, other than to drugs and biological substances (5) Wheezing: Code(s): R06.2 - Wheezing Plan Patient is a 48-year-old female came in today for physical exam Patient have a history of iron-deficiency anemia However she has not had her menstrual cycle in 4 months, patient is going through menopause She is due for lab order placed Complaining of feeling tired, I have added B12 as well Meanwhile she is to continue with the iron supplement, refill sent Patient is up-to-date with mammogram that was just done She is established with OBGYN at [facility] Pap smear and breast exams are through them Due for colonoscopy She has allergies, and is taking no allergy medication, on physical exam today she is wheezing right lower posterior lung base I have sent cetirizine prescription and ProAir as well Further management after the reports Orders: Orders Complete Blood Count Auto Diff Today D50.9 - Iron deficiency anemia, unspecified, Z00.01 - Encounter for general adult medical examination with abnormal findings Comprehensive [place]. Panel Fast Today D50.9 - Iron deficiency anemia, unspecified, Z00.01 - Encounter for general adult medical examination with abnormal findings Lipid Panel Today D50.9 - Iron deficiency anemia, unspecified, Z00.01 - Enc ounter for general adult medical examination with abnormal findings TSH reflex Free T4 Today D50.9 - Iron deficiency anemia, unspecified, Z00.01 - Encounter for general adult medical examination with abnormal findings Ferritin Today D50.9 - Iron deficiency anemia, unspecified, Z00.01 - Encounter for general adult medical examination with abnormal findings Vitamin B12 Today D50.9 - Iron deficiency anemia, unspecified, R53.83 - Other fatigue Referrals Gastroenterology Referral Z12.11 - Encounter for screening for malignant neoplasm of colon Medications: New cetirizine (Zyrtec) 10 mg PO DAILY 90 days 90 tabs 1RF albuterol sulfate 90 mcg/actuation (Ventolin HFA) 1 inh inhalation QID 30 days PRN 6.7 grams 0RF shortness of breath or wheezing Changed From ferrous sulfate 324 mg PO TID 270 tabs 0RF 90 days To ferrous sulfate 324 mg PO ONCE 90 days 90 tabs 1RF Coding Level of Care Code Est Pt Prev Care 40-64y(32860) Diagnoses Encounter for general adult medical examination with abnormal findings Z00.01 Iron deficiency anemia due to chronic blood loss D50.0 Iron deficiency anemia type: chronic blood loss Tired R53.83 Environmental allergies Z91.09 Wheezing R06.2 Additional Codes KRISTINE-7 Assessment Billing - KRISTINE-7 Assessment Tool: KRISTINE-7 Assessment [id number] ([id number])
[2024-02-12 08:00] VITALS: BP 112/64; PULSE 88; O2SAT 98; BMI 21.9
== END 2024-02-12 08:15 | disposition home or self-care (01) ==
PROVIDERS: PCP Internal Medicine; Visit Provider Internal Medicine
DX: Z00.01 Encounter for general adult medical examination with abnormal findings (principal); R06.2 Wheezing; Z91.09 Other allergy status, other than to drugs and biological substances; D50.0 Iron deficiency anemia secondary to blood loss (chronic); R53.83 Other fatigue
CPT/HCPCS: 99213; 99396

== ENCOUNTER 2024-04-20 13:01 | Outpatient (AMB) | payer OTHER, SELFPAY ==
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
[2024-04-20 13:08] VITALS: BP 130/60; PULSE 92; O2SAT 98; BMI 23.1
== END 2024-04-20 17:55 | disposition home or self-care (01) ==
PROVIDERS: PCP Internal Medicine; Visit Provider Internal Medicine
DX: T24.211A Burn of second degree of right thigh, initial encounter (principal)
CPT/HCPCS: 99214

== ENCOUNTER 2024-05-03 08:25 | Outpatient (AMB) | payer OTHER, SELFPAY ==
[2024-05-03 08:27] VITALS: BP 112/66; PULSE 78; O2SAT 96; BMI 23.2
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
== END 2024-05-03 09:34 | disposition home or self-care (01) ==
PROVIDERS: PCP Internal Medicine; Visit Provider Internal Medicine
DX: T24.211A Burn of second degree of right thigh, initial encounter (principal)
CPT/HCPCS: 99214

== ENCOUNTER 2024-06-09 09:44 | Outpatient (AMB) | payer OTHER, SELFPAY ==
--- OUTSIDE RECORDS SUMMARY | 2024-06-09 09:46 | XMS_ITS | Continuity of Care Document ---
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[employer] Name Role Phone Not on Staff, PCP Primary Care Physician Unavail able Encounter [facility] [place] Date(s): 11/18/19 - 11/18/[address] [address]- [facility] Encounter Diagnosis Chest pain(Final) - 11/18/19 Discharge Disposition: A-D/C Home Attending Physician: Elfego Noel MD Admitting Physician: Elfego Noel MD Referring Physician: Not on Staff, Referring MD Allergies, Adverse Reactions, Alerts Substance Reaction Severity Status NKA Active Medications Meclizine Tablet 25, mg, By Mouth, 4 times a day, Scheduled / PRN, 56, tablet, 0, 0, 09/17/05 15:34:37, as needed for motion sickness, 1/2 to 1 tablet, Print [employer] Number, [address] [place] [address], 65 Start Date: 09/17/05 Stop Date: 10/01/05 Status: Ordered Naprosyn Tablet 500, mg, By Mouth, 2 times a day, 30, tablet, 1, 1, 10/03/05 10:31:42, with food, Print [employer] Number,[address] [place] [address], [id number], Constant Indicator Start Date: 10/03/05 Stop Date: 12/02/05 Status: Ordered Skelaxin 800 mg oral tablet 800, mg, 1, tablet, By Mouth, 3 times a day, 42, tablet, 1, 1, 10/03/05 10:32:38, Print [employer] Number,[address] [place] [address], 68, Constant Indicator Start Date: 10/03/05 Stop Date: 10/31/05 Status: Ordered Vicodin 500 mg-5 mg oral tablet 2, tablet, By Mouth, Daily at bedtime, 20, tablet, 0, 0, 10/03/05 10:32:55, Print [employer] Number, ADS OPPT, [address] [place] [address], 144, Constant Indicator Start Date: 10/03/05 Stop Date: 10/13/05 Status: Ordered Results Radiology Reports * Exam Date Time Procedure Performing Provider Status 11/18/19 8:23 PM Chest 2 Views Frontal and Lat Valentina Bauman; Auth (Verified) Notes: (Chest 2 Views Frontal and Lat) Reason For Exam: Angina RESULT: Chest 2 Views Frontal and Lat Chest 2 Views Frontal and Lat Reason: Angina; Clinical Question(s): CHF; Hx of Present Illness: Yesterday evening patient developed intermittent sharp stabbing chest pains lasting seconds then subsiding. Associated left arm discomfort described as throbbing ache is constant and persists. COMPARISON: 02/16/2006 FINDINGS: LINES AND TUBES: None. LUNGS AND PLEURA: Clear lungs. Normal pulmonary vascularity. No pleural effusion. No pneumothorax. HEART, MEDIASTINUM AND MIKE: Heart is normal in size. Normal mediastinal and hilar contour. BONES AND SOFT TISSUES: No acute abnormality. IMPRESSION: No acute abnormality. WSN: [id number] Dictated By: Jorge Luis Figueroa DO Dictated Date/Time: 11/18/19 8:26 pm Reviewed By: Jorge Luis Figueroa DO Signed By: Jorge Luis Figueroa DO Signed Date/Time: 11/18/19 8:26 pm Transcribed By: BLANCO Transcribed Date/Time: 11/18/19 8:25 pm Vital Signs Most recent to oldest [Reference Range]: 1 2 Oxygen Saturation [94-100 %] 100 % (11/18/19 9:27 PM) 100 % (11/18/19 2:48 PM) Pulse Rate [55-90 bpm] 73 bpm (11/18/19 9:27 PM) 78 bpm (11/18/19 2:48 PM) Blood Pressure [90-138/55-84 mm Hg] 116/ 61mm Hg (11/18/19 9:27 PM) 127/76mm Hg (11/18/19 2:48 PM) Respiratory Rate [16-30 br/min] 18 br/mi n (11/18/19 9:27 PM) 18 br/min (11/18/19 2:48 PM) Temperature [96.8-100.4 DegF] 98.5 DegF (11/18/19 9:27 PM) 98.7 DegF (11/18/19 2:48 PM) Mode of Delivery (Oxygen) Room air (11/18/19 9:27 PM) Room air (11/18/19 2:48 PM) Blood pressure sites Arm, right (11/18/19 9:27 PM) Arm, right (11/18/19 2:48 PM) Temperature Route Oral (11/18/19 9:27 PM) Oral (11/18/19 2:48 PM)
--- OUTSIDE RECORDS SUMMARY | 2024-06-09 09:46 | XMS_ITS | Continuity of Care Document ---
Author Organization [facility] Address [address] [place] [address]- Care Team Providers Care Superintendent General Name Role Phone Rene POLLOCK, Asma Primary Care Physician Encounter [facility] Date(s): 04/14/24 - 04/15/[address] [address]- Discharge Disposition: A-D/C Home Attending Physician: Xavier Baxter DO Admitting Physician: Xavier Baxter DO Referring Physician: Not on Staff, Referring MD Allergies, Adverse Reactions, Alerts No Known Allergies Immunizations Given and Recorded Vaccine Date Status Refusal Reason tetanus/diphtheria/pertussis, acel(Tdap) 04/15/24 Given Medications MorPHINE Inj 4 mg, Injection, Intramuscular, Once, STAT, 04/14/24 23:59:00 EDT, Stop date 04/14/24 23:59:00 EDT Start Date: 04/14/24 Stop Date: 04/15/24 Status: Completed oxyCODONE 5 mg oral tablet 5 mg, 1, tablet, By Mouth, Every 6 hours, PRN, for 3 days, # 10 tablet, Refills 0, Tot. Refills 0, Acute 04/17/24 23:53:00 EDT, as needed for pain, 04/14/24 23:53:00 EDT, Route to Pharmacy Electronically, [facility]/pharmacy #[id number], Partial fill upon patient... Start Date: 04/14/24 Stop Date: 04/17/24 Status: Ordered Percocet-5/325 325 mg-5 mg oral tablet 3 tablet, Tablet, By Mouth, On Discharge for 7 days, STAT, 04/14/24 23:53:00 EDT, Stop date 04/21/24 23:52:00 EDT Start Date: 04/14/24 Stop Date: 04/15/24 Status: Completed Vital Signs Most recent to oldest [Reference Range]: 1 2 3 Height 168 cm (04/15/24 12:31 AM) 168 cm (04/14/24 11:23 PM) Weight 66 kg (04/15/24: AM) 66 kg (04/14/24 11:23 PM) Oxygen Saturation [94-100 %] 96 % (04/15/24:31 AM) 98 % (04/14/24:23 PM) Pulse Rate [55-90 bpm] 94 bpm *H* (04/15/24:31 AM) 113 bpm *H* (04/14/24 11:23 PM) Body Mass Index [18.5-24.99 kg/m2] 23.38 kg/m2 (04/15/24 AM) Blood Pressure [90-138/55-84 mm Hg] 112/65mm Hg (04/15/24 12: AM) 127/79mm Hg (04/14/24 11:23 PM) Respiratory Rate [16-30 br/min] 16 br/min (04/15/24 12:38 AM) 16 br/min (04/15/24 12:31 AM) 16 br/min (04/15/24 12:27 AM) Temperature [96.8-100.4 DegF] 97.9 DegF (04/15/24: AM) 98.4 DegF (04/14/24 11:23 PM) Mode of Delivery (Oxygen) Room air (04/15/24 12:31 AM) Room air (04/14/24 11:23 PM) Blood pressure sites Arm, right (04/15/24 12:31 AM) Arm, left (04/14/24 11:23 PM) Temperature Route Oral (04/15/24 12:31 AM) Oral (04/14/24 11:23 PM) Dry Weight 66 kg (04/15/24 12:31 AM) 66 kg (04/14/24 11:23 PM) Weight Obtained Via Standing scale (04/14/24 11:23 PM) Dry Weight Obtained Via Standing scale (04/14/24 11:23 PM) Patient Care team information Care Team Personnel Name: Rene POLLOCK, Kleber Position: S Physician - Primary Care Member Role: PCP Address: Address: [address] [place] [address]- Care Team Related Persons Name: HAYDEN RILEY Address: [address] [address]
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
[2024-06-09 09:53] VITALS: BP 110/70; PULSE 86; TEMP 37; O2SAT 98; BMI 23.1
--- NOTE | 2024-06-09 09:53 | AM.OFFWIN_ITS ---
Intake Vital Signs 06/09/24 09:53 Height 5 ft 6 in Weight 143 lb BMI 23.1 BP 110/70 Blood Pressure Location Rt brachial Position Sitting Pulse 86 Pulse Source Pulse Oximeter Temp 98.6 F Temp Source Oral Pulse Oximetry (%) 98 Oxygen Delivery Method Room Air Intake Visit Reasons: EP sore throat, aches, no voice Intake Note: Patient here for sore throat,body aches, no voice. Patient Tobacco Use Status: Never used Tobacco Allergies Environmental Allergy (Unknown, Uncoded 06/09/24 09:55) unknown Do you need a note to return to daycare/school/sports/work: No HPI EP sore throat, aches, no voice HPI Details This note is constructed using voice recognition software. While every effort has been made to ensure accuracy, transfer machine operator errors may have been included. The patient is a 48 year old female who presents to the clinic today with cough, congestion, and sore throat for the past 3 days. She notes that she was in [place] for a concert and started off with a mild sore throat which she felt was likely related to singing and yelling during the cancer, however the symptoms progressed and she developed some congestion and coughing. She developed body aches yesterday. Her is also sick with similar symptoms, and he traveled with her. She denies shortness of breath, fever, chills, cp, palpitations. [facility] Medical History Iron deficiency anemia Intraductal papilloma Abnormal mammogram of left breast Left breast mass Surgical History History of lumpectomy of left breast History of tonsillectomy H/O section History of appendectomy Family History Maternal Grandmother Breast cancer Social History Household Members: Spouse Housing: House Are you a primary nanny caregiver to a significant other at home: No Do you presently have visiting nurse or other home services: No Alcohol intake: current Alcohol intake frequency: a few times a week Patient Tobacco Use Status: Never used Tobacco e-Cigarette/Vaping Use: Never Used service: No Current occupational status: employed Cognitive needs: No Hearing needs: No Vision needs: Yes (contacts) Female Reproductive History Menstrual Age of Menarche: 15 Review of Systems Const All systems reviewed & are unremarkable except as noted in HPI and below Physical Exam Vital Signs: Last Vital Signs Temp 98.6 F 06/09/24 09:53 Pulse 86 06/09/24 09:53 BP 110/70 06/09/24 09:53 Pulse Ox 98 06/09/24 09:53 Oxygen Delivery Method Room Air 06/09/24 09:53 BMI result Body Mass Index 23.1 Const General: cooperative, healthy appearing, comfortable and no acute distress Orientation/consciousness: patient oriented x3 Limitations: no limitations HEENT Head: Yes normal to inspection Ears: hearing grossly normal bilaterally, external ears normal and TM's normal bilaterally General nose exam: Normal external nose present, Normal nares present and No nasal discharge present Face and sinus: Yes normal facial exam and Yes sinuses nontender Mouth: Normal oral and palatal mucosa present and moist mucous membranes Throat: Yes tonsils normal, Yes uvula midline and Yes posterior oropharynx abnormal (Erythema) Eyes General: appearance normal, both eyes and all related structures Neck Neck: Yes normal visual inspection Resp Effort & Inspection: normal respiratory effort, able to speak in complete sentences, Actively coughing, no respiratory distress, not tachypneic, no tripod positioning and no use of accessory muscles Auscultation: clear to auscultation bilaterally Cardio Jugular venous distension: no JVD Rate: regular rate Rhythm: regular rhythm Heart sounds: S1 normal heart sound present, S2 normal heart sound present, no click, no gallops, no murmurs and no rubs Skin General skin exam: no rashes or lesions noted, elasticity normal and turgor normal Neuro General: patient oriented x3 Extrem General: Yes normal to inspection and Yes no clubbing, cyanosis or edema Results AMB Rapid Strep AMB Rapid Strep Negative Last Edit by MEENA Morales on 06/09/24 10:22 Assessment & Plan Assessment & Plan (1) URI (upper respiratory infection): Code(s): J06.9 - Acute upper respiratory infection, unspecified Qualifiers: URI type: unspecified URI Qualified Code(s): J06.9 - Acute upper respiratory infection, unspecified Plan: In office rapid strep negative. Viral swab obtained to rule out Covid based on symptoms. Advised mask wearing while symptomatic and quarantine per current CDC guidelines. Reviewed at home support methods including hydration, humidification, vix vapor rub, sinus rinse, mucinex. Discussed treatment with antiviral therapy for covid with paxlovid including appropriate use and side effects, and need to start medication within 5 day of symptom onset, preferably within 48 hours of symptom onset. Patient wishes to decline paxlovid. Discussed symptomatic management with prednisone, however patient declined this as well. Advised follow up with worsening symptoms such as dyspnea at rest, which would require emergent evaluation. Plan See above for full details and plan. Orders: Orders AMB Rapid Strep Screen Today Z13.9 - Encounter for screening, unspecified SARS-CoV2/FLU/RSV Today R09.89 - Other specified symptoms and signs involving the circulatory and respiratory systems Coding Level of Care Code Est Pt Level 3 (73156) Diagnoses Upper respiratory tract infection, unspecified type J06.9 URI type: unspecified URI
== END 2024-06-09 10:28 | disposition home or self-care (01) ==
PROVIDERS: PCP Internal Medicine; Visit Provider Registered Nurse
DX: Z13.9 Encounter for screening, unspecified (principal); J06.9 Acute upper respiratory infection, unspecified
CPT/HCPCS: 87880; 99213

== ENCOUNTER 2024-06-09 10:06 | Outpatient (REF) | payer OTHER, SELFPAY ==
[2024-06-09 14:06] LABS: Influenza A PCR NEGATIVE (Negative); Influenza B PCR NEGATIVE (Negative); Resp Syncy Virus RNA Qual PCR NEGATIVE (Negative); SARS COV2 PCR INHOUSE POSITIVE (Negative)
== END 2024-06-09 10:07 | disposition home or self-care (01) ==
LOC: HO.LNP 10:06
PROVIDERS: Visit Provider Registered Nurse
DX: R09.89 Other specified symptoms and signs involving the circulatory and respiratory systems (principal)
CPT/HCPCS: 0241U